=== PATIENT | female | born 1990 | race Caucasian/White ===

== ENCOUNTER 2018-09-05 13:52 | Inpatient (IN) | payer BC ==
[2018-09-05] MEDS ORDERED: Ondansetron 4 MG/2 ML SDV IVPUSH PRN ×2 (19:03→20:10)
[2018-09-05] MEDS ORDERED: Nalbuphine 20 MG/ML 1 ML Syringe IVPUSH PRN (19:03)
[2018-09-05] MEDS ORDERED: Sodium Chloride 0.9% 10 ML Syringe FLUSH PRN (19:03)
--- NOTE | 2018-09-05 19:08 | PCM.LDHP ---
L&D History of Present Illness - General Date of Service: 09/05/18 Admit Problem/Dx: Patient Status Order with Admit Dx/Problem 09/05/18 15:06 Patient Status [ADT] Routine 09/05/18 19:03 Patient Status [ADT] Routine Admission Diagnosis/Problem Admission Diagnosis/Problem Source of Information: Patient History Limitations: Reports: No Limitations - History of Present Illness Introduction:: Patient is a 28 y/o at 39 0/7 wks who presents in early labor. Contractions started throughout the day. When first assessed in L&D was 2-3 and has now made change to 3-4 and 75% effaced. - Related Data Allergies/Adverse Reactions: Allergies Allergy/AdvReac Type Severity Reaction Status Date / Time Sulfa (Sulfonamide Allergy Rash Verified 09/05/18 15:06 Antibiotics) Past Medical History [employer] History: Reports: , Spontaneous : 3 Para: 1 LMP (Approximate): - Past Surgical History HEENT Surgical History: Reports: Oral Surgery (tooth extraction) Female Surgical History: Reports: D&C Social & Family History - Tobacco Use Smoking Status *Q: Never Smoker - Alcohol Use Alcohol Use History: No - Recreational Drug Use Recreational Drug Use: No H&P Review of Systems - Review of Systems: Review Of Systems: See Below General: Reports: No Symptoms Pulmonary: Reports: No Symptoms Cardiovascular: Reports: No Symptoms Gastrointestinal: Reports: No Symptoms Genitourinary: Reports: No Symptoms Musculoskeletal: Reports: No Symptoms Skin: Reports: No Symptoms L&D Exam - Exam Exam: See Below - Vital Signs Weight: 107.955 kg - OB Specific Contraction Intensity: Moderate to Strong Movement: Active Heart Tones: Present Heart Tones per Min: 120 Heart Rate (FHR) Variability: Moderate (6-25 bmp) Presentation: Vertex - Mahoney Score Mahoney Score Cervix Position: Midposition Mahoney Score Consistency: Soft Mahoney Score Effacement: 51-70% Mahoney Score Dilation: 3-4 cm Mahoney Score 's Station: -2 Mahoney Score Total: 8 - Exam General: Alert, Oriented, Cooperative Lungs: Clear to Auscultation, Normal Respiratory Effort Cardiovascular: Regular Rate, Regular Rhythm GI/Abdominal Exam: Soft, Non-Tender Genitourinary: Normal external exam Extremities: Normal Inspection Skin: Warm, Dry, Intact - Patient Data Result Diagrams: 09/05/18 19:20 - Problem List (1) 39 weeks gestation of SNOMED Code(s): 04453383 ICD Code: Z3A.39 - 39 WEEKS GESTATION OF Status: Acute Current Visit: Yes (2) Normal labor SNOMED Code(s): 13561915 ICD Code: O80 - ENCOUNTER FOR FULL-TERM UNCOMPLICATED DELIVERY; Z37.9 - OUTCOME OF DELIVERY, UNSPECIFIED Status: Acute Current Visit: Yes Problem List Initiated/Reviewed/Updated: Yes Orders Last 24hrs: Active Orders 24 hr Category Date Time Status Patient Status [ADT] Routine ADT 09/05/18 15:06 Active Patient Status [ADT] Routine ADT 09/05/18 19:03 Active Activity as Tolerated [RC] PFP Care 09/05/18 19:03 Active Communication Order [RC] ASDIRECTED Care 09/05/18 19:03 Active Heart Tones [RC] ASDIRECTED Care 09/05/18 19:03 Active Non Stress Test [RC] PER UNIT ROUTINE Care 09/05/18 15:06 Active Non Stress Test [RC] PER UNIT ROUTINE Care 09/05/18 19:03 Active Notify Provider [RC] PFP Care 09/05/18 19:03 Active Notify Provider [RC] PRN Care 09/05/18 19:03 Active Peripheral IV Care [RC] . DIRECTED Care 09/05/18 19:03 Active Vital Signs [RC] PER UNIT ROUTINE Care 09/05/18 15:06 Active Vital Signs [RC] PER UNIT ROUTINE Care 09/05/18 19:03 Active Regular Diet [DIET] Diet 09/05/18 Dinner Active CBC W/O DIFF,HEMOGRAM [HEME] Stat Lab 09/05/18 19:03 Ordered RAPID PLASMA REAGIN,RPR [CHEM] Stat Lab 09/05/18 19:03 Ordered TYPE AND SCREEN [BBK] Stat Lab 09/05/18 19:03 Ordered Lactated Ringers [Ringers, Lactated] 1,000 ml Med 09/05/18 19:15 Ordered IV ASDIRECTED Nalbuphine [Nubain] Med 09/05/18 19:03 Ordered 10 mg IVPUSH Q2H PRN Ondansetron [Zofran] Med 09/05/18 19:03 Ordered 4 mg IVPUSH Q4H PRN Oxytocin/Lactated Ringers [Pitocin in LR 10 Units/1,000 Med 09/05/18 19:15 Ordered ML] 10 unit in 1,000 ml IV .CONTINUOUS Sodium Chloride 0.9% [Saline Flush] Med 09/05/18 19:03 Ordered 10 ml FLUSH ASDIRECTED PRN Electronic Heart Tones Ext w TOCO [WOMSER] Oth 09/05/18 19:03 Ordered Routine Electronic Heart Tones Internal [WOMSER] Per Unit Ot 09/05/18 19:03 Ordered Routine Peripheral IV Insertion Adult [OM.PC] Routine Oth 09/05/18 19:03 Ordered Resuscitation Status Routine Resus Stat 09/05/18 15:06 Ordered Medication Orders Lactated Ringer's (Ringers, Lactated) 1,000 mls @ 100 mls/hr IV ASDIRECTED GIANFRANCO Oxytocin/Lactated Ringer's (Pitocin In Lr 10 Units/1,000 Ml) 10 unit in 1,000 mls @ 500 mls/hr IV .CONTINUOUS GIANFRANCO Nalbuphine HCl (Nubain) 10 mg IVPUSH Q2H PRN PRN Reason: pain Ondansetron HCl (Zofran) 4 mg IVPUSH Q4H PRN PRN Reason: Nausea/Vomiting Sodium Chloride (Saline Flush) 10 ml FLUSH ASDIRECTED PRN PRN Reason: Keep Vein Open Assessment/Plan Comment:: 28 y/o at 39 0/7 wks who presents in labor * Labs on admission * GBS negative, no need for antibiotics * Pain management per patient preference * Anticipate
[2018-09-05] MEDS ORDERED: Oxytocin/Lactated Ringers 10 UNIT/1,000 ML BAG IV SCH ×2 (19:15→23:45)
[2018-09-05] MEDS: Lactated Ringers 1,000 ML IV SCH ×3 (20:00→20:43)
[2018-09-05] MEDS ORDERED: fentaNYL 100 MCG/2 ML SDV EPIDUR PRN (20:10)
[2018-09-05] MEDS ORDERED: diphenhydrAMINE 50 MG/ML SDV IVPUSH PRN (20:10)
[2018-09-05] MEDS ORDERED: ePHEDrine 50 MG/ML SDV IVPUSH PRN (20:10)
[2018-09-05] MEDS ORDERED: fentaNYL/Bupivacaine-NS 2 MCG/ML-0.125%/PF 100 ML Bag EP SCH (20:15)
--- NOTE | 2018-09-05 21:23 | PCM.PREANE ---
Preanesthetic Assessment - Procedure Proposed Procedure: OCTAVIANO - Anesthesia/Transfusion/Family Hx Anesthesia History: Prior Anesthesia Without Reaction Family History of Anesthesia Reaction: No Transfusion History: No Prior Transfusion(s) - Review of Systems General: No Symptoms Pulmonary: No Symptoms Cardiovascular: No Symptoms Gastrointestinal: No Symptoms Neurological: No Symptoms Other: Reports: None - Physical Assessment NPO Status Date: 09/05/18 NPO Status Time: 18:00 Pulse: 87 O2 Sat by Pulse Oximetry: 100 Respiratory Rate: 18 Blood Pressure: 137/65 Temperature: 36.3 C Height: 1.65 m Weight: 107.955 kg ASA Class: 2 Mental Status: Alert & Oriented x3 Airway Class: Mallampati = 1 Dentition: Reports: Normal Dentition Thyro-Mental Finger Breadths: 3 Mouth Opening Finger Breadths: 3 ROM/Head Extension: Full Lungs: Clear to Auscultation, Normal Respiratory Effort Cardiovascular: Regular Rate, Regular Rhythm - Lab Values: Laboratory Last Values WBC 11.23 K/mm3 (3.98-10.04) H 09/05/18 19:20 RBC 4.45 M/mm3 (3.98-5.22) 09/05/18 19:20 Hgb 13.4 gm/L (11.2-15.7) 09/05/18 19:20 Hct 38.6 % (34.1-44.9) 09/05/18 19:20 MCV 86.7 fl (79.4-94.8) 09/05/18 19:20 MCH 30.1 pg (25.6-32.2) 09/05/18 19:20 MCHC 34.7 g/dl (32.2-35.5) 09/05/18 19:20 RDW Std Deviation 41.7 fL (36.4-46.3) 09/05/18 19:20 Plt Count 195 K/mm3 (182-369) 09/05/18 19:20 MPV 10.0 fl (9.4-12.3) 09/05/18 19:20 Blood Type O POSITIVE 09/05/18 19:20 Gel Antibody Screen Negative 09/05/18 19:20 - Allergies Allergies/Adverse Reactions: Allergies Allergy/AdvReac Type Severity Reaction Status Date / Time Sulfa (Sulfonamide Allergy Rash Verified 09/05/18 15:06 Antibiotics) - Blood Blood Available: No Product(s) Available: None - Anesthesia Plan Pre-Op Medication Ordered: None - Acknowledgements Anesthesia Type Planned: Epidural Pt an Appropriate Candidate for the Planned Anesthesia: Yes Alternatives and Risks of Anesthesia Discussed w Pt/Guardian: Yes Pt/Guardian Understands and Agrees with Anesthesia Plan: Yes PreAnesthesia Questionnaire [employer] History: Reports: , Spontaneous - Past Surgical History HEENT Surgical History: Reports: Oral Surgery (tooth extraction) Female Surgical History: Reports: D&C - SUBSTANCE USE Smoking Status *Q: Never Smoker Second Hand Smoke Exposure: No Recreational Drug Use History: No - CURRENT (IN HOUSE) MEDS Current Meds: Current Medications Diphenhydramine HCl (Benadryl) 25 mg IVPUSH Q6H PRN PRN Reason: Pruritis Ephedrine Sulfate (Ephedrine Sulfate) 5 mg IVPUSH ASDIRECTED PRN PRN Reason: Hypotension Fentanyl (Sublimaze) 100 mcg EPIDUR Q3H PRN PRN Reason: Pain Last Admin: 09/05/18 20:31 Dose: 100 mcg Fentanyl/Bupivacaine HCl (Bgiffvpk-Oiwit-Ms 2 Mcg/Ml-0.125%) 100 ml EP ASDIRECTED [facility] Last Admin: 09/05/18 20:35 Dose: 100 ml Lactated Ringer's (Ringers, Lactated) 1,000 mls @ 100 mls/hr IV ASDIRECTED [facility] Last Admin: 09/05/18 20:43 Dose: 999 mls/hr Oxytocin/Lactated Ringer's (Pitocin In Lr 10 Units/1,000 Ml) 10 unit in 1,000 mls @ 500 mls/hr IV ASDIRECTED [facility] Nalbuphine HCl (Nubain) 10 mg IVPUSH Q2H PRN PRN Reason: pain Ondansetron HCl (Zofran) 4 mg IVPUSH Q4H PRN PRN Reason: Nausea/Vomiting Ondansetron HCl (Zofran) 4 mg IVPUSH ONETIME PRN PRN Reason: Nausea/Vomiting Sodium Chloride (Saline Flush) 10 ml FLUSH ASDIRECTED PRN PRN Reason: Keep Vein Open
[2018-09-05] MEDS ORDERED: Lidocaine 1.5% with EPINEPHrine 1:200,000 5 ML Amp ONE (22:00)
[2018-09-05] MEDS ORDERED: Bupivacaine 0.25% 10 ML SDV ONE (22:00)
--- NOTE | 2018-09-06 02:54 | PCM.DEL ---
L & D Note - General Info Date of Service: 09/06/18 - Delivery Note Labor: Augmented by ARM Delivery Outcome: Livebirth Delivery Method: Spontaneous Vaginal Delivery-Single Infant Delivery Mode: Spontaneous Presentation: Left Occiput Anterior (BERKLEY) Nuchal Cord: None Anesthesia Type: Epidural Amniotic Fluid Description: Clear Episiotomy Type: None Laceration: None Placenta: Intact, Spontaneous Cord: 3 Vessels Estimated Blood Loss: 200 Resuscitation Needed: Yes : Bulb Syringe, Stimulated, Warmed, [place] Used, Warmer Used Delivery Comments (Free Text/Narrative):: Patient found to be complete and began pushing. With maternal pushing effort head delivered from BERKLEY presentation. No nuchal cord present. With gentle downward traction the anterior shoulder did not deliver. head noted to be pressed against the perineum. Patient placed in deep McRobert's and suprapubic pressure applied. Anterior shoulder then able to be delivered. Total duration of dystocia < 30 seconds. Remainder of body quickly followed. placed on maternal abdomen. Cord clamped and cut. Cord blood obtained. Placenta allowed time to separate and expelled intact. Inspection of the perineum showed no lacerations - General Info Date of Service: 09/06/18 - Patient Data Vitals - Most Recent: Last Vital Signs Temp 36.3 C 09/05/18 21:23 Pulse 87 09/05/18 21:23 Resp 18 09/05/18 21:23 BP 137/65 09/05/18 21:23 Pulse Ox 100 09/05/18 21:23 Weight - Most Recent: 107.955 kg Lab Results Last 24 Hours: Laboratory Results - last 24 hr 09/05/18 09/05/18 Range/Units 19:20 19:20 WBC 11.23 H (3.98-10.04) K/mm3 RBC 4.45 (3.98-5.22) M/mm3 Hgb 13.4 (11.2-15.7) gm/L Hct 38.6 (34.1-44.9) % MCV 86.7 (79.4-94.8) fl MCH 30.1 (25.6-32.2) pg MCHC 34.7 (32.2-35.5) g/dl RDW Std Deviation 41.7 (36.4-46.3) fL Plt Count 195 (182-369) K/mm3 MPV 10.0 (9.4-12.3) fl Blood Type O POSITIVE Gel Antibody Screen Negative Med Orders - Current: Current Medications Diphenhydramine HCl (Benadryl) 25 mg IVPUSH Q6H PRN PRN Reason: Pruritis Last Admin: 09/06/18 00:59 Dose: 25 mg Ephedrine Sulfate (Ephedrine Sulfate) 5 mg IVPUSH ASDIRECTED PRN PRN Reason: Hypotension Fentanyl (Sublimaze) 100 mcg EPIDUR Q3H PRN PRN Reason: Pain Last Admin: 09/05/18 20:31 Dose: 100 mcg Fentanyl/Bupivacaine HCl (Jpkfbujy-Hhdao-Kc 2 Mcg/Ml-0.125%) 100 ml EP ASDIRECTED GIAN[facility]ANCO Last Admin: 09/05/18 20:35 Dose: 100 ml Lactated Ringer's (Ringers, Lactated) 1,000 mls @ 100 mls/hr IV ASDIRECTED GIANFRANCO Last Admin: 09/05/18 20:43 Dose: 999 mls/hr Oxytocin/Lactated Ringer's (Pitocin In Lr 10 Units/1,000 Ml) 10 unit in 1,000 mls @ 500 mls/hr IV ASDIRECTED GIANFRANCO Oxytocin/Lactated Ringer's (Pitocin In Lr 10 Units/1,000 Ml) 10 unit in 1,000 mls @ 12 mls/hr IV TITRATE GIANFRANCO; Protocol Last Titration: 09/06/18 01:25 Dose: 4 munits/min, 24 mls/hr Nalbuphine HCl (Nubain) 10 mg IVPUSH Q2H PRN PRN Reason: pain Ondansetron HCl (Zofran) 4 mg IVPUSH Q4H PRN PRN Reason: Nausea/Vomiting Ondansetron HCl (Zofran) 4 mg IVPUSH ONETIME PRN PRN Reason: Nausea/Vomiting Sodium Chloride (Saline Flush) 10 ml FLUSH ASDIRECTED PRN PRN Reason: Keep Vein Open - Problem List & Annotations (1) 39 weeks gestation of SNOMED Code(s): 01653582 Code(s): Z3A.39 - 39 WEEKS GESTATION OF Status: Acute Current Visit: Yes (2) Normal labor SNOMED Code(s): 17857184 Code(s): O80 - ENCOUNTER FOR FULL-TERM UNCOMPLICATED DELIVERY; Z37.9 - OUTCOME OF DELIVERY, UNSPECIFIED Status: Acute Current Visit: Yes (3) Shoulder dystocia during labor and delivery, delivered SNOMED Code(s): 402040153, 273695394 Code(s): O66.0 - OBSTRUCTED LABOR DUE TO SHOULDER DYSTOCIA Status: Acute Current Visit: Yes (4) Vaginal delivery SNOMED Code(s): 724905756 Code(s): O80 - ENCOUNTER FOR FULL-TERM UNCOMPLICATED DELIVERY Status: Acute Current Visit: Yes - Problem List Review Problem List Initiated/Reviewed/Updated: Yes - My Orders Last 24 Hours: My Active Orders 09/05/18 15:06 Patient Status [ADT] Routine Non Stress Test [RC] PER UNIT ROUTINE Vital Signs [RC] PER UNIT ROUTINE Resuscitation Status Routine 09/05/18 19:03 Patient Status [ADT] Routine Activity as Tolerated [RC] PFP Communication Order [RC] ASDIRECTED Heart Tones [RC] ASDIRECTED Non Stress Test [RC] PER UNIT ROUTINE Notify Provider [RC] PFP Notify Provider [RC] PRN Peripheral IV Care [RC] . DIRECTED Vital Signs [RC] PER UNIT ROUTINE Nalbuphine [Nubain] 10 mg IVPUSH Q2H PRN Ondansetron [Zofran] 4 mg IVPUSH Q4H PRN Sodium Chloride 0.9% [Saline Flush] 10 ml FLUSH ASDIRECTED PRN Electronic Heart Tones Ext w TOCO [WOMSER] Routine Electronic Heart Tones Internal [WOMSER] Per Unit Routine Peripheral IV Insertion Adult [OM.PC] Routine 09/05/18 19:15 Lactated Ringers [Ringers, Lactated] 1,000 ml IV ASDIRECTED Oxytocin/Lactated Ringers [Pitocin in LR 10 Units/1,000 ML] 10 unit in 1,000 ml IV ASDIRECTED 09/05/18 19:20 RAPID PLASMA REAGIN,RPR [CHEM] Stat 09/05/18 21:02 PATIENT RETYPE [BBK] Routine 09/05/18 23:45 Oxytocin/Lactated Ringers [Pitocin in LR 10 Units/1,000 ML] 10 unit in 1,000 ml IV TITRATE 09/05/18 Dinner Regular Diet [DIET] - Assessment Assessment:: 28 y/o G2 now P2002 PPD#0 from at 39 1/7 wks - Plan Plan:: * Routine cares * Encourage breast feeding * Discharge home in 1-2 days
[2018-09-06] MEDS ORDERED: Benzocaine/Menthol 20%-0.5% Spray 56 GM Canister TOP PRN (03:11)
[2018-09-06] MEDS ORDERED: Lanolin 100% Cream 7 GM Tube TOP PRN (03:11)
[2018-09-06] MEDS ORDERED: Docusate Sodium 100 MG Cap PO PRN (03:11)
[2018-09-06] MEDS ORDERED: Acetaminophen 325 MG Tab PO PRN (03:11)
[2018-09-06] MEDS ORDERED: Witch Hazel Medicated Pads 100/Jar TOP PRN (03:11)
--- NOTE | 2018-09-06 08:12 | PCM48HPAN ---
Post Anesthesia Note - EVALUATION WITHIN 48HRS OF ANESTHETIC Vital Signs in Normal Range: Yes Patient Participated in Evaluation: Yes Respiratory Function Stable: Yes Airway Patent: Yes Cardiovascular Function Stable: Yes Hydration Status Stable: Yes Pain Control Satisfactory: Yes Nausea and Vomiting Control Satisfactory: Yes Mental Status Recovered: Yes Pulse Rate: 87 Resp Rate: 18 Temperature: 97.3 F Blood Pressure: 137/65 - COMMENTS/OBSERVATIONS Free Text/Narrative:: She has a little numbness on the lateral side of left leg.
[2018-09-06] MEDS: Ibuprofen 600 MG Tab PO PRN ×2 (14:00→20:00)
[2018-09-07] MEDS: Ibuprofen 600 MG Tab PO PRN (04:03)
--- NOTE | 2018-09-07 06:45 | PCM.DCSUM1 ---
Discharge Summary - Hospital Course Free Text/Narrative:: Discussion is a 28-year-old 3 now para 2012 who was admitted in early labor on 09/05/2018. She progressed in labor and delivered a viable, spontaneous infant vaginally. She did have mild shoulder dystocia which lasted less than 30 seconds. was placed on mom's abdomen cord was cut and cord blood obtained. She has done well and is interested in discharge today. Diagnosis: Stroke: No - Discharge Data Discharge Date: 09/07/18 Discharge Disposition: Home, Self-Care 01 Condition: Good - Patient Instructions Diet: Regular Diet as Tolerated Activity: As Tolerated (No [place] or tampons until bleeding resolves) Driving: Do Not Drive (2 days) Showering/Bathing: May Shower (May take a bath) Notify Provider of: Fever, Increased Pain, Swelling and Redness, Nausea and/or Vomiting - Discharge Plan Home Medications: Home Meds Vits #93/Iron Fum/FA [ Formula Tablet] 1 tab PO DAILY 09/05/18 [History] Acetaminophen [Tylenol] 650 mg PO Q4H PRN tablet 09/07/18 [Rx] Ibuprofen [Motrin] 600 mg PO Q6H PRN tablet 09/07/18 [Rx] - Discharge Summary/Plan Comment DC Time >30 min.: No Discharge Summary/Plan Comment: Discharge instructions: 1. Discharge home 2. Diet, activity and follow-up discussed with patient. Recommend nursing diet with increased calories and calcium. 3. Precautions given concern increased pain, bleeding, temperature, signs/ symptoms of DVT/PE. 4. Medications per home medication was printed, discussed with and given to the patient. 5. Return to clinic-Dr. Moran at [facility] in 4-6 weeks. Diagnosis: Term -delivered Condition: Good - Patient Data Vitals - Most Recent: Last Vital Signs Temp 36.4 C 09/07/18 01:57 Pulse 78 09/07/18 01:57 Resp 16 09/07/18 01:57 BP 122/75 09/07/18 01:57 Pulse Ox 99 09/07/18 01:57 Weight - Most Recent: 107.955 kg I&O - Last 24 hours: Intake & Output 09/06/18 09/06/18 09/07/18 14:59 22:59 06:59 Intake Total 0 60 Balance 0 60 Lab Results - Last 24 hrs: Laboratory Results - last 24 hr 09/05/18 Range/Units 19:20 RPR Non-reactive (NONREACTIVE) Med Orders - Current: Current Medications Acetaminophen (Tylenol) 650 mg PO Q4H PRN PRN Reason: mild pain or fever Benzocaine/Menthol (Dermoplast Pain Relief [place]) 0 gm TOP ASDIRECTED PRN PRN Reason: Perineal Comfort Measure Last Admin: 09/06/18 05:05 Dose: 1 can Docusate Sodium (Colace) 100 mg PO BID PRN PRN Reason: Constipation Last Admin: 09/07/18 04:37 Dose: 100 mg Emollient Ointment (Lansinoh Hpa) 0 gm TOP ASDIRECTED PRN PRN Reason: Sore Nipples Ibuprofen (Motrin) 600 mg PO Q6H PRN PRN Reason: Mild pain or fever Last Admin: 09/07/18 04:03 Dose: 600 mg Witch Lina (Tucks) 1 pad TOP ASDIRECTED PRN PRN Reason: Hemorrhoid pain Last Admin: 09/06/18 05:04 Dose: 1 jar Discontinued Medications Diphenhydramine HCl (Benadryl) 25 mg IVPUSH Q6H PRN PRN Reason: Pruritis Last Admin: 09/06/18 00:59 Dose: 25 mg Ephedrine Sulfate (Ephedrine Sulfate) 5 mg IVPUSH ASDIRECTED PRN PRN Reason: Hypotension Fentanyl (Sublimaze) 100 mcg EPIDUR Q3H PRN PRN Reason: Pain Last Admin: 09/05/18 20:31 Dose: 100 mcg Fentanyl/Bupivacaine HCl (Ihwpjwfh-Xglhy-Dg 2 Mcg/Ml-0.125%) 100 ml EP ASDIRECTED GIANFRANCO Last Admin: 09/05/18 20:35 Dose: 100 ml Lactated Ringer's (Ringers, Lactated) 1,000 mls @ 100 mls/hr IV ASDIRECTED GIANFRANCO Last Admin: 09/05/18 20:43 Dose: 999 mls/hr Oxytocin/Lactated Ringer's (Pitocin In Lr 10 Units/1,000 Ml) 10 unit in 1,000 mls @ 500 mls/hr IV ASDIRECTED [facility] Oxytocin/Lactated Ringer's (Pitocin In Lr 10 Units/1,000 Ml) 10 unit in 1,000 mls @ 12 mls/hr IV TITRATE GIANFRANCO; Protocol Last Titration: 09/06/18 02:30 Dose: 500 mls/hr Nalbuphine HCl (Nubain) 10 mg IVPUSH Q2H PRN PRN Reason: pain Ondansetron HCl (Zofran) 4 mg IVPUSH Q4H PRN PRN Reason: Nausea/Vomiting Ondansetron HCl (Zofran) 4 mg IVPUSH ONETIME PRN PRN Reason: Nausea/Vomiting Sodium Chloride (Saline Flush) 10 ml FLUSH ASDIRECTED PRN PRN Reason: Keep Vein Open
== END 2018-09-07 13:50 | disposition home or self-care (01) | DRG 560 ==
LOC: JD.OBCHECK 13:52 → JD.OB 13:59 → JD.OBCHECK 19:02 → JD.OB 19:03 → OBSVTOIN 09-06 02:23 → JD.OB 09-06 02:24
PROVIDERS: ADMIT Obstetrics & Gynecology; ATTEND Obstetrics & Gynecology
PROC: 00HU33Z Insertion of Infusion Device into Spinal Canal, Percutaneous Approach (ICD-10-PCS; 2018-09-05)
PROC: 3E0R3BZ Introduction of Anesthetic Agent into Spinal Canal, Percutaneous Approach (ICD-10-PCS; 2018-09-05)
PROC: 6A550ZT Pheresis of Cord Blood Stem Cells, Single (ICD-10-PCS; principal; 2018-09-06)
PROC: 10E0XZZ Delivery of Products of Conception, External Approach (ICD-10-PCS; principal; 2018-09-06)
PROC: 10907ZC Drainage of Amniotic Fluid, Therapeutic from Products of Conception, Via Natural or Artificial Opening (ICD-10-PCS; principal; 2018-09-06)
DX: O66.0 Obstructed labor due to shoulder dystocia (principal); Z37.0 Single live birth; Z3A.39 39 weeks gestation of pregnancy; Z88.2 Allergy status to sulfonamides
CPT/HCPCS: 01967; 36415; 51702; 59025; 59409; 85027; 86592; 86850; 86900; 86901; A9270-GY; J1200; J2590; J3010; J3490; J7120

== ENCOUNTER 2024-10-23 11:29 | Emergency (ER) | payer BC ==
[2024-10-23 12:49] LABS: BASOPHILS ABSOLUTE AUTO 0.1 K/mm3 (0.0-0.2); EOSINOPHILS ABSOLUTE AUTO 0.1 K/mm3 (0.0-0.4); EOSINOPHILS PERCENT AUTO 1.2 % (0.0-6.0); HEMATOCRIT 32.1 % (37.0-47.0); HEMOGLOBIN 11.4 gm/dl (12.0-16.0); IMMATURE GRAN ABSOLUTE AUTO 0.32 K/mm3 (0.00-0.05); IMMATURE GRAN PERCENT AUTO 5.3 % (0.0-0.4); LYMPHOCYTES ABSOLUTE AUTO 0.9 K/mm3 (1.0-4.8); LYMPHOCYTES PERCENT AUTO 14.6 % (24.0-44.0); MEAN CORPUSCULAR HEMOGLOBIN 29.7 pg (28.0-32.0); MEAN CORPUSCULAR HGB CONC 35.5 g/dl (32.0-36.0); MEAN CORPUSCULAR VOLUME 83.6 fl (83.0-99.0); MEAN PLATELET VOLUME 8.7 fl (9.4-12.3); MONOCYTES ABSOLUTE AUTO 0.4 K/mm3 (0.0-0.8); MONOCYTES PERCENT AUTO 6.1 % (0.0-8.0); NEUTROPHILS ABSOLUTE AUTO 4.3 K/mm3 (1.8-7.7); NEUTROPHILS PERCENT AUTO 71.8 % (41.0-71.0); PLATELET COUNT,PLT 249 K/mm3 (150-400); RED BLOOD CELL COUNT 3.84 M/mm3 (4.10-5.30); WHITE BLOOD CELL COUNT,WBC 6.02 K/mm3 (3.9-11.3)
[2024-10-23 13:19] LABS: A/G RATIO 1.1 (1-2); ALBUMIN 3.5 g/dl (3.4-5.0); ANION GAP 9.8 (5-15); BILIRUBIN TOTAL 0.5 mg/dL (0.2-1.0); BUN/CREATININE RATIO 12.2 (14-18); C-REACTIVE PROTEIN 0.57 mg/dL (<0.30); CALCIUM 8.4 mg/dL (8.5-10.1); CREATININE 0.9 mg/dL (0.55-1.02); EST CRCL DRUG DOSING (CG) 80.75 mL/min; MAGNESIUM 1.9 mg/dL (1.8-2.4); POTASSIUM,K 3.8 mEq/L (3.5-5.1); PROTEIN TOTAL,TP 6.6 g/dl (6.4-8.2); TSH 1.174 uIU/mL (0.358-3.74); URIC ACID 5.4 mg/dL (2.6-6.0)
[2024-10-23 13:34] LABS: SLIDE REVIEW ABNORMAL SMEAR
== END 2024-10-23 13:20 | disposition home or self-care (01) ==
LOC: JD.ED 11:29
DX: M35.3 Polymyalgia rheumatica (principal); Z88.2 Allergy status to sulfonamides
CPT/HCPCS: 36415; 71045; 71045-26; 73120-26-LT; 73120-26-RT; 73120-LT; 73120-RT; 80053; 82550; 83735; 83880; 84443; 84550; 85025; 85652; 86140; 87428-QW; 99283